=== PATIENT | male | born 1985 | race Two or more races ===

== ENCOUNTER 2016-08-23 14:51 | Emergency (ER) | payer SELFPAY ==
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
== END 2016-08-23 15:37 | disposition disaster alternative care site (69) ==
LOC: GACC 14:51
DX: S60.221A Contusion of right hand, initial encounter (principal); F17.210 Nicotine dependence, cigarettes, uncomplicated; W22.01XA Walked into wall, initial encounter

== ENCOUNTER 2016-08-29 02:28 | Emergency (ER) | payer SELFPAY ==
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
== END 2016-08-29 03:06 | disposition disaster alternative care site (69) ==
LOC: GMED 02:28
DX: S00.12XA Contusion of left eyelid and periocular area, initial encounter (principal); H11.89 Other specified disorders of conjunctiva; F41.9 Anxiety disorder, unspecified; F32.9 Major depressive disorder, single episode, unspecified; F17.210 Nicotine dependence, cigarettes, uncomplicated; Y04.0XXA Assault by unarmed brawl or fight, initial encounter; Z88.6 Allergy status to analgesic agent